=== PATIENT | female | born 1955 | race Caucasian/White ===

== ENCOUNTER 2016-03-30 05:53 | Inpatient (IN) ==
[2016-03-30] MEDS ORDERED: Albuterol 2.5 MG/3 ML NEBULIZER ONE (06:15)
[2016-03-30] MEDS ORDERED: CeFAZolin Pre 2,000 MG/100 ML 2,000 MG/100 ML BAG IVPB ONE (06:42)
[2016-03-30] MEDS ORDERED: Albuterol 2.5 MG/3 ML NEBULIZER IH ONE ×2 (06:42→08:09)
[2016-03-30] MEDS ORDERED: Ringers Solution, Lactated 1,000 ML IVC SCH ×3 (06:45→12:52)
[2016-03-30] MEDS ORDERED: Lidocaine -MPF 4% 5 ML AMPUL ONE (06:59)
[2016-03-30] MEDS ORDERED: *HR* Remifentanil 1 MG VIAL IVP ONE ×2 (07:01→10:02)
[2016-03-30] MEDS ORDERED: *HR* Midazolam HCl 2 MG/2 ML VIAL ONE (07:01)
[2016-03-30] MEDS ORDERED: *HR* Propofol 200 MG/20 ML VIAL IVP ONE (07:01)
[2016-03-30] MEDS ORDERED: *HR* FentaNYL (PF) 100 MCG/2 ML VIAL ONE (07:01)
[2016-03-30] MEDS ORDERED: *HR* Rocuronium Bromide 50 MG/5 ML VIAL ONE (07:02)
[2016-03-30] MEDS ORDERED: Lidocaine -MPF 2% 2 ML VIAL ONE (07:02)
[2016-03-30] MEDS ORDERED: *HR* Succinylcholine 200 MG/10 ML VIAL IVP ONE (07:02)
[2016-03-30] MEDS ORDERED: *HR* Phenylephrine 10 MG/ML VIAL ONE ×2 (07:02→09:39)
--- NOTE | 2016-03-30 07:17 | Anesthesia Evaluation PreOp ---
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 LLE) Other Medical History: Denies Any Significant HX Anesthesia History: No Prior Anesthetic Complications : No Test: Negative Alcohol Use: occasionally Drug use: none Medications and Allergies Allergies No Known Allergies Allergy (Unverified 03/25/16 15:06) - Meds/Allergy Pre-op Review Medications Reviewed: Yes Allergies Reviewed: Yes Beta Blockers on Current Med List: Yes (Took Metoprolol Today 0430) Anesthesia Results - Labs Laboratory Tests 03/25/16 03/25/16 15:27 15:27 Hgb 13.2 Hct 37.8 Plt Count 139 L Sodium 140 Potassium 4.5 BUN 19 Creatinine 0.81 - Imaging EKG: report reviewed (SR) Anesthesia Exam O2 Sat Height 1.7 m Height 1.7 m Height 1.7 m Weight 101.151 kg Weight 101.151 kg Weight 101.151 kg O2 Sat by Pulse Oximetry 95 O2 Sat by Pulse Oximetry 95 Vital Signs Temp Pulse Resp BP Pulse Ox 97.7 F 92 18 121/75 95 03/30/16 06:20 03/30/16 06:20 03/30/16 06:20 03/30/16 06:20 03/30/16 06:20 Height: 5'7 Weight: 223 lbs NPO (# of Hours): MN - HEENT Pupil (Motor): Pupils equal, EOMI Mallampati: II Teeth: Normal Oral Opening: Greater than 3 - SCORER HELPER LOC: Oriented SCORER HELPER Motor: Normal RUE, Normal LUE, Normal RLE, Normal Face, Deficit LLE SCORER HELPER Sensory: Normal: RUE, LUE, RLE, Face, Deficit: LLE (paresthesia) - Cardiac Rhythm: Regular Murmur: None JVD: No Carotid Bruit: No - Pulmonary Breath Sounds: bilateral Clear Respiratory Effort: Symmetrical Anesthesia Assess/Plan ASA Score: 2 Modified Maggie Scale for Level of Consciousness: Cooperative, oriented, and tranquil Anesthetic Plan: General Monitoring Plan: Standard Monitors Recovery Plan: PACU (Discussed GA, agrees to proceed)
--- NOTE | 2016-03-30 07:37 | History & Physical Report ---
Date of Encounter: 03/30/16 Time of Encounter: 07:36 24 Hour HP Update - Instructions Instructions: If the History and Physical is less than 30 days old and was completed prior to A.M. admission and or procedure and has NOT been updated on calendar day of procedure please complete this update prior to performing procedure. - Update Patient reports changes in Medical Condition: No Changes in assessment/condition: No Changes in Medication: No Preop tests/diagnostics Reviewed: Yes Pre-Op MRSA Screen: Negative Surgery Remains Indicated: Yes Consent for Planned Operative Procedure(s) Verified: Yes - Pre-Operative Checklist Preoperative Checklist Indicated: No Prophylactic Antibiotic Ordered: Yes Home Medications Include Beta Edith: No Beta Edith Taken Today (Day of Surgery): No Beta Edith Taken Yesterday (Day Prior to Surgery): No Is VTE Prophylaxis Indicated?: Yes
[2016-03-30] MEDS ORDERED: Naloxone 0.4 MG/ML INJ IVP PRN ×2 (08:09→12:52)
[2016-03-30] MEDS ORDERED: *HR* Meperidine 25 MG/ML SYRINGE IVP PRN (08:09)
[2016-03-30] MEDS ORDERED: *HR* HYDROmorphone (PF) 1 MG/ML SYRINGE IVP PRN (08:09)
[2016-03-30] MEDS ORDERED: *HR* Labetalol 100 MG/20 ML MDV IVP PRN (08:09)
[2016-03-30] MEDS ORDERED: Ondansetron 4 MG/2 ML VIAL IVP ONE (08:09)
[2016-03-30] MEDS ORDERED: Ondansetron 4 MG/2 ML VIAL ONE (08:36)
[2016-03-30] MEDS ORDERED: Dexamethasone 4 MG/ML VIAL ONE (08:36)
[2016-03-30] MEDS ORDERED: *HR* HYDROmorphone 2 MG/ML SYRINGE ONE (11:25)
--- NOTE | 2016-03-30 11:37 | Orthopedic Operative Note ---
Date of procedure: 03/30/16 Pre-op diagnosis: lumbar stenosis, lumba radiculopaty, synovial cyst Post-op diagnosis: same Operation/Findings: Posterior lumbar interbody fusion L4-L5:The patient successfully underwent general endotracheal anesthesia. The patient was given antibiotics prior to the start of the procedure. Compression boots and stockings were used for deep vein thrombosis prophylaxis. A Pizarro catheter was placed. Leads for neuro monitoring were placed on the upper and lower extremities. This included the cranium. The neuro monitoring personnel confirmed there were satisfactory readings prior to the start of the procedure. The patient was turned prone on the Stephan table. The back was prepped and draped in the usual sterile fashion. An incision was was marked and centered over the involved L4-L5 levels in the mid line. The incision was deepened through the lumbar fascia. Bovie cautery and Stoner elevators were used to reflect the paraspinal musculature at the lateral extent of the transverse processes of the involved L4 and L5 levels. Cinthya clamps were placed over the spinous processes. An intraoperative lateral fluorograph was obtained. A conversation was held between the surgeon and radiologist and both confirmed we had the correct operative levels. We then placed pedicle screws in standard fashion with the aid of fluoroscopy and anatomic landmarks. Briefly a starter awl was used. A gearshift was subsequently used to enter the captain/airline pilot hole via a transpedicular route into the vertebral body. The captain/airline pilot hole was tapped with an undersized instrument, and subsequently four 6.5 x 40 mm pedicle screws were placed bilaterally at the indicated L4 and L5 levels. The screws were tested with the aid of the neurologic monitoring staff via pedicle screw stimulation. All reading suggested there was no significant cortical wall breech. The screws were also evaluated fluoro- graphically and appeared to be in satisfactory position. We then turned our attention to the decompression portion of the procedure. We removed the supraspinous and interspinous ligaments and subsequently the insertion of the ligamentum flavum on the undersurface of the proximal L4 lamina was dislodged with a curette. We then removed the ligamentum flavum as well as undercut the L4-5 facets at this level to decompress the lateral recesses. We also performed a L4 laminectomy. After the decompression, which was over and above that which was required to place the interbody graft, the foramen and traversing roots at this L4-5 level were found to be free and patent. We also took part of the medial facet in order to aid in the decompression. We then protected the neural elements including the thecal sac and traversing nerve root on the right with a dural retractor. We made an annulotomy into the L4-5 disc space and then removed entire disc material using Pituitary instruments. We trialed various size grafts after the endplates were prepared for graft insertion. A 12 x 26 enter body graft fit well within the L4-5 disc space. We obtained some bone from the right posterior superior iliac spine through us a separate incision and combined with this with the bone which we had saved from the laminectomy portion of the procedure. This autograft bone was first placed in the anterior portion of the L4-5 disc space and additional bone was placed within the interbody graft spacer. We then placed the interbody graft spacer obliquely across the disc space towards the midline while protecting the neural elements with a root retractor. When the graft was found to be in satisfactory position the customer acquisition manager was removed. We then copiously irrigated the wound. We then decorticated the L4 and L5 transverse processes as well as the L4-5 facet joints of the involved levels to aid in the posterolateral fusion. We placed autograft bone in the lateral gutters over these regions. We then placed rods within the screw heads of the involved levels and first locked the distal screws and then subsequently locked the proximal screws. We then closed the wound in layers with 1 Vicryl for the fascia, 2-0 Vicryl. Subcutaneous tissue, and Dermabond was used for skin closure. Sterile dressings were placed over the wound. The patient was turned supine on a hospital bed and extubated. All sponge instruments and needle counts were correct at the end of the procedure. The patient tolerated the procedure well without complications. Anesthesia: GETA Surgeon: Sammy Galaviz Jr Estimated blood loss (cc): 150 Condition: stable Disposition: PACU
--- NOTE | 2016-03-30 12:38 | Anesthesia Evaluation Post Op ---
Date of Encounter: 03/30/16 Time of Encounter: 12:40 - Vital Signs Vital Signs: Vital Signs/O2 Sat/Glucose, Most Current Temp Pulse Resp BP Pulse Ox 03/30/16 12:26 91 16 101/59 96 03/30/16 12:16 97.9 F 85 16 99/65 96 03/30/16 12:06 88 16 96/62 97 03/30/16 11:56 87 16 90/70 98 03/30/16 11:46 99.2 F 121 16 100/77 95 - Lungs Lungs: Clear Ascult./Percussion - Airway Airway: Non-obstructed - Cardiovascular Regular Rate - Mental Status Mental Status: Alert & Oriented, Answers Appropriately - Pain Pain Scale: 0 - Nausea Vomiting Nausea Vomiting: Not Present - Hydration Hydration: Ice chips - Discharge PostOp Status: Transfer Patient to floor
[2016-03-30] MEDS ORDERED: *HR* Morphine 2 MG/ML SYRINGE IVP PRN ×2 (12:52)
[2016-03-30] MEDS ORDERED: Sennosides 8.6 MG TABLET PO PRN (12:52)
[2016-03-30] MEDS ORDERED: Ondansetron 4 MG/2 ML VIAL IVP PRN (12:52)
[2016-03-30] MEDS: *HR* OxyCODONE Immed Rel 5 MG TABLET PO PRN ×2 (16:11→21:14)
[2016-03-30] MEDS: ceFAZolin 2,000 MG in D5% in Water 100 ML IVPB SCH ×2 (16:11→23:38)
[2016-03-31 05:23] LABS: Basophils % 0.3 %; Eosinophils % 0.1 %; Hematocrit 28.7 % (35.3-44.9); Immature Granulocytes % 0.5 % (0-4); Lymphocytes # 1.3 K/mcL (0.6-4.6); Mean Corpuscular HGB Conc 33.4 g/dL (31.6-35.5); Mean Corpuscular Hemoglobin 29.9 pg (28.0-33.3); Mean Corpuscular Volume 89.4 fL (83.0-100.0); Mean Platelet Volume 10.9 fL (9.4-12.4); Monocytes # 0.8 K/mcL (0.0-1.3); Monocytes % 10.6 %; Neutrophils # 5.7 K/mcL (1.6-8.9); Platelet Count 116 K/mcL (140-400); Red Blood Count 3.21 M/mcL (3.82-4.97); Red Cell Distribution Width 13.4 % (11.5-14.5); Segmented Neutrophils % 72.5 %
[2016-03-31 05:25] LABS: Hemoglobin 9.6 g/dL (11.5-15.4)
[2016-03-31] MEDS: *HR* OxyCODONE Immed Rel 5 MG TABLET PO PRN ×3 (05:25→17:25)
[2016-03-31 05:39] LABS: BUN/Creatinine Ratio 20 (6-26); Blood Urea Nitrogen 18 mg/dL (7-20); Calcium 8.8 mg/dL (8.6-10.8); Carbon Dioxide 22 mEq/L (19-29); Chloride 104 mEq/L (98-109); Glucose 108 mg/dL (70-99); Osmolality,Calculated 286 (280-300); Potassium 3.7 mEq/L (3.5-4.5); Sodium 137 mEq/L (136-145); eGFR For African Americans > 60 (> 60); eGFR For Non-African Americans > 60 (> 60)
[2016-04-01] MEDS: *HR* OxyCODONE Immed Rel 5 MG TABLET PO PRN ×2 (08:52→15:10)
[2016-04-01 15:13] VITALS: BP 106/64
--- NOTE | 2016-04-01 17:06 | Spine Progress Note ---
Date of Encounter: 03/31/16 Time of Encounter: 16:05 Subjective Principal diagnosis: s/p lumbar fusion, lumbar stenosis, synovial cyst spine Interval history: The patient is without complaints. Afebrile vital signs are stable. Incision is clean dry and intact. Neurovascularly intact with regard to bilateral lower extremities. Fires all upper and lower extremity motor groups. Plan mobilize ,continue analgesics, discharge planning. Objective Vital signs: Vital Signs Temp Pulse Resp BP Pulse Ox 04/01/16 15:12 106/64 04/01/16 15:07 77 16 113/64 04/01/16 11:45 98.3 F 79 17 118/73 93 L 04/01/16 09:10 93 L 04/01/16 08:51 87 120/65 04/01/16 07:45 98.5 F 86 17 99/63 89 L 04/01/16 06:41 98.7 F 81 16 102/64 93 L 04/01/16 03:08 98.5 F 76 16 108/61 93 L 03/31/16 23:35 98.9 F 89 16 98/55 93 L 03/31/16 21:45 99.7 F H 89 16 114/46 96 03/31/16 17:23 87 117/66 Intake and Output 04/01/16 04/01/16 04/01/16 07:59 15:59 23:59 Intake Total 200 / 200 240 / 240 Balance 200 / 200 240 / 240 Intake: Oral 200 / 200 240 / 240 Other: Meal Breakfast Percent of Meal Consumed 25% # Voids 1 - Labs CBC & BMP: 03/31/16 05:00 03/31/16 05:00 Labs: Abnormal lab results RBC 3.21 M/mcL (3.82-4.97) L 03/31/16 05:00 Hgb 9.6 g/dL (11.5-15.4) L D 03/31/16 05:00 Hct 28.7 % (35.3-44.9) L 03/31/16 05:00 Plt Count 116 K/mcL (140-400) L 03/31/16 05:00 Glucose 108 mg/dL (70-99) H 03/31/16 05:00 Consult Discharge Plan - Plan Additional Instructions: Discharge Instructions: Lumbar Please call [facility] ([phone]), your Primary Care Physician, or report to the ER if you have any of the following symptoms: Fever greater that 101.5, increased pain/redness/drainage/odor for your incision site or any other concerning symptoms. ACTIVITY * May Shower * No Tub Baths * No lifting greater than 10 pounds * No Smoking * No Swimming * No off Ground Activities (Running, Climbing, Ladders, Horseback Riding) * No Driving * Wear Back Brace when up walking if lumbar fusion done MEDICATIONS: Upon discharge resume your home medications. Take all the medications as prescribed. Take a stool softener if taking narcotic pain medications. Stool softeners are only effective if you drink enough fluids. Drink 6-8 glass of water or fluids a day, unless this is not allowed for another health problem. Despite using stool softeners, if you haven't had a bowel movement in 3 days, please switch to a gentle laxative. Gentle laxatives are sold over the counter. You should have a bowel movement within 24 hours, if not call the office. You will be discharged from the hospital with a prescription for pain medication. You are encouraged to decrease the use of narcotic pain medication as tolerated. Should you require a refill, please call the office. It is best to call 48-72 hours in advance of needing a prescription refill so you don't run out of medication. WOUND CARE: Remove Dressing Tomorrow. Leave incision open to air. Pat dry when you get out of the shower. FOLLOW-UP: Please follow up with your surgeon in the orthopedic clinic in 2 weeks from the day of surgery. References: [employer] ([email or web address]) Referrals: Kerry Ta PAC [Physician Scheduling Specialist] - 04/14/16 8:00 am Sridevi Garcia MD [Primary Care Provider] -
--- NOTE | 2016-04-01 17:09 | Discharge Summary ---
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 (3) Lumbar radiculopathy Priority: Secondary Status: Chronic - Discharge Medications Prescriptions: OxyCODONE Immed Rel [Roxicodone 5 MG] 5 mg PO Q6HR PRN #60 tablet PRN Reason: Severe Pain Home Medications: Metoprolol XL (24 HR) Succ [Toprol Xl] 25 mg PO QPM 03/30/16 [History] Metoprolol XL (24 HR) Succ [Toprol Xl] 50 mg PO DAILY 03/30/16 [History] Sertraline [Zoloft] 100 mg PO BID 03/30/16 [History] OxyCODONE Immed Rel [Roxicodone 5 MG] 5 mg PO Q6HR PRN #60 tablet 04/01/16 [Rx] Allergies/Adverse Reactions: Allergies No Known Allergies Allergy (Verified 03/30/16 07:34) - Impressions ITS Impressions Lumbar Spine X-Ray 03/30/16 11:20 IMPRESSION: Posterior spinal fusion L4-5 with intervertebral discectomy. No hardware complication. D/ / 03/30/2016 12:47:03 Lg Sanchez MD / [facility] Interpreting Provider: Lg Sanchez MD Lumbar Spine X-Ray 04/01/16 13:46 IMPRESSION: Postsurgical changes from posterior fusion L4-L5. D/ / Rayna Lopes MD / Rayna Lopes MD Interpreting Provider: Rayna Lopes MD Date of admission: 03/30/16 13:30 Primary care physician: Sridevi Garcia MD Consults: 03/30/16 12:52 Consult to Occupational Therapy [CONS] Routine Comment: Evaluate, develop and implement POC Consult to Physical Therapy [CONS] Routine Comment: Evaluate, develop and implement POC Consult to Spine Navigator [CONS] [CONS] Routine - Patient Status Disposition: Home, Self-Care Condition: Good Functional capacity at discharge: independent ambulation Overall status at discharge: patient is progressing back to baseline - Discharge Instructions Follow Up With: Kerry Ta PAC [Physician [employer] Sandblaster Apprentice] - 04/14/16 8:00 am Sridevi Garcia MD [Primary Care Provider] - Additional Instructions: Discharge Instructions: Lumbar Please call [facility] ([phone]), your Primary Care Physician, or report to the ER if you have any of the following symptoms: Fever greater that 101.5, increased pain/redness/drainage/odor for your incision site or any other concerning symptoms. ACTIVITY * May Shower * No Tub Baths * No lifting greater than 10 pounds * No Smoking * No Swimming * No off Ground Activities (Running, Climbing, Ladders, Horseback Riding) * No Driving * Wear Back Brace when up walking if lumbar fusion done MEDICATIONS: Upon discharge resume your home medications. Take all the medications as prescribed. Take a stool softener if taking narcotic pain medications. Stool softeners are only effective if you drink enough fluids. Drink 6-8 glass of water or fluids a day, unless this is not allowed for another health problem. Despite using stool softeners, if you haven't had a bowel movement in 3 days, please switch to a gentle laxative. Gentle laxatives are sold over the counter. You should have a bowel movement within 24 hours, if not call the office. You will be discharged from the hospital with a prescription for pain medication. You are encouraged to decrease the use of narcotic pain medication as tolerated. Should you require a refill, please call the office. It is best to call 48-72 hours in advance of needing a prescription refill so you don't run out of medication. WOUND CARE: Remove Dressing Tomorrow. Leave incision open to air. Pat dry when you get out of the shower. FOLLOW-UP: Please follow up with your surgeon in the orthopedic clinic in 2 weeks from the day of surgery. References: [employer] ([email or web address]) - Diet and Activity Activity: as per physical therapy Diet: advance to your usual diet - Hospital Course Hospital course: Ms. Reyez is a 60 year old female The patient had an uneventful postoperative course. Progressed from intravenous analgesic needs to oral analgesic needs only. Remained neurovascularly intact and mobilized satisfactorily. All intraoperative and/or postoperative radiographic studies were satisfactory. Patient is discharged with plan for rehabilitation and follow-up in 2 weeks post discharge on analgesic medication and patient's home medications. - Time Spent with Patient Total time spent providing and/or coordinating discharge services: - VTE Documentation of Mechanical Device: Venous foot pump, device
== END 2016-04-01 18:45 | disposition home or self-care (01) | DRG 460 ==
LOC: SAMDAY 05:53 → 3NENU 13:30
PROVIDERS: ADMIT Orthopaedic Surgery Orthopaedic Surgery of the Spine; ATTEND Orthopaedic Surgery Orthopaedic Surgery of the Spine